=== PATIENT | female | born 1955 | race Caucasian/White ===

== ENCOUNTER 2022-08-27 12:22 | Outpatient (CLI) | payer BC, SELFPAY ==
--- NOTE | 2022-08-27 13:51 | W.ANESCHARGE ---
Anesthesia Charges Start Date/Time Anesthesia Start Date: 08/27/22 Anesthesia Start Time: 13:20 Stop Date/Time Anesthesia Stop Date: 08/27/22 Anesthesia Stop Time: 13:47 Summary Emergency: No
== END 2022-08-27 12:23 | disposition home or self-care (01) ==
LOC: OP CLINIC 12:23
PROVIDERS: PCP Family Medicine; Visit Provider Internal Medicine Gastroenterology
DX: R19.5 Other fecal abnormalities (principal); K63.5 Polyp of colon
CPT/HCPCS: 00812; 45385; 88305; J2704